=== PATIENT | female | born 1980 | race Hispanic/Latino ===

== ENCOUNTER 2017-01-08 07:18 | Emergency (ER) | payer OTHER ==
[~2017-01-08] VITALS: Ht 157.5 cm; Wt 59.0 kg
[~2017-01-08 07:18] MED LIST: DOCUSATE SODIU100 M3 PO; ESCITALOPRAM OX10 MG; KEFLEX500 M1 PO; KLOR-CON20 ME1 PO; LEVSIN-SL0.125 MG SL; OXYCODONE-ACET1 EACH; PEPCID20 M1 PO; PERCOCET 5-3251 EACH PO; REGLAN10 M1 PO; VISTARIL50 M1 PO
[2017-01-08 07:21] VITALS: BP 125/82
--- NOTE | 2017-01-08 07:24 | ED HAND/WRIST INJURY COMPLAINT ---
History of Present Illness General Chief Complaint: Laceration Procedure Stated Complaint: LAV TO RT POINTING FINGER Source: patient Exam Limitations: no limitations Vital Signs & Intake/Output Vital Signs & Intake/Output Vital Signs Date Time Temp Pulse Resp B/P B/P Pulse O2 O2 Flow FiO2 Mean Ox Delivery Rate 01/08 0721 96.6 79 18 125/82 96 Room Air Allergies Coded Allergies: NO KNOWN ALLERGIES (03/03/16) Reconcile Medications Cephalexin (Keflex) 500 MG CAPSULE 1 CAP PO TID INFECTION Cephalexin (Keflex) 500 MG CAPSULE 1 CAP PO TID INFECTION Docusate Sodium 100 MG CAPSULE 1 CAP PO BID STOOL SOFTENER (Reported) Escitalopram Oxalate (Unknown Strength) TABLET (Unknown Dose) UNKNOWN ( Reported) Famotidine (Pepcid) 20 MG TABLET 1 TAB PO BID gastritis Hydroxyzine Pamoate (Vistaril) 50 MG CAPSULE 1 CAP PO BID PRN anxiety Hyoscyamine Sulfate (Levsin-Sl) 0.125 MG TAB.SUBL 1-2 TAB SL Q4P PRN abd pain Metoclopramide HCl (Reglan) 10 MG TABLET 1 TAB PO 4 TIMES/DAY PRN nausea/ vomiting 30 minutes before meals and bedtime Oxycodone HCl/Acetaminophen (Oxycodone-Acetaminophen 5-325) (Unknown Strength) TABLET (Unknown Dose) UNKNOWN (Reported) Oxycodone HCl/Acetaminophen (Percocet 5-325 MG Tablet) 1 EACH TABLET 1 TAB PO Q6P PRN severe pain Potassium Chloride (Klor-Con) 20 MEQ PACKET 1 PACKET PO BID hypokalemia Triage Note: 36 Y/O FEMALE C/O V-SHAPED LACERATION TO R INDEX FINGER; CUT WITH POCKET KNIFE. PT UNSURE OF LAST TETANUS. 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 yes Occurred: this morning Timing: single episode today Injury Environment: home Severity: mild, moderate Pain/Injury Location: Right: 1st finger. Method of Injury: laceration No Modifying Factors: none : No Patient currently breastfeeds: No HPI: 36 year old female who presents to the ER 20 minutes after cutting her right index finger with a pocket knife. She was trying to cut a hole in a belt when it occured. No numbness or tingling. There was a decent amount of blood at the site. Currently not actively bleeding, and her tetanus is not up-to-date. Past History Travel History Traveled to [place] past 21 day No Medical History Any Pertinent Medical History? 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 No Review of Systems Review of Systems Constitutional: Denies: chills, fever. EENTM: Reports: no symptoms. Respiratory: Denies: short of breath. Cardiovascular: Denies: chest pain. GI: Denies: abdominal pain. Genitourinary: Reports: no symptoms. Musculoskeletal: Reports: no symptoms. Skin: Reports: no symptoms. Neurological/Psychological: Reports: no symptoms. Hematologic/Endocrine: Reports: bleeding. Immunologic/Allergic: Reports: no symptoms. All Other Systems: Reviewed and Negative Physical Exam Physical Exam General Appearance: well developed/nourished, alert, awake, anxious, mild distress Head: atraumatic Eyes: Bilateral: PERRL, EOMI. Ears, Nose, Throat: normal pharynx, normal ENT inspection, hearing grossly normal Neck: normal inspection, supple Cardiovascular/Respiratory: normal breath sounds, regular rate/rhythm Back: normal inspection Elbow Left: normal range of motion, normal inspection Elbow Right: normal range of motion, normal inspection Forearm Left: normal range of motion, normal inspection Forearm Right: normal range of motion, normal inspection Wrist Left: normal range of motion, normal inspection Wrist Right: normal range of motion, normal inspection Hand Left: normal inspection, normal range of motion Hand Right: 1st finger (V SHAPED LACERATION) Neurologic/Tendon: normal sensation, normal motor functions, normal tendon functions Skin: intact, normal color, warm/dry Lymphatic: no anterior cervical bhumika Progress Differential Diagnosis: LACERATION Plan of Care: Tetanus, laceration repair/irrigation Antibiotics as wound likely dirty Departure Departure Time of Disposition: 08 Disposition: HOME OR SELF CARE Condition: Stable Clinical Impression Primary Impression: Finger laceration Referrals: JOHAN BRADLEY APRN (PCP/Family) Additional Instructions: Return in 7 days for suture removal. Please use the finger splint as directed. Take the Keflex as prescribed. Return any sooner as needed. Departure Forms: Customer Survey General Discharge Information Prescriptions: Current Visit Scripts Cephalexin (Keflex) 1 CAP PO TID #30 CAP Procedures Splinting Location: right index finger splint Laceration/Wound Repair Laceration/Wound Repair: Wound Location: RIGHT INDEX FINGER Wound's Depth, Shape: flap Wound Length (cm): 5 Wound Explored: no foreign body removed, irrigated extensively Irrigated w/ Saline (ccs): 100 Betadine Prep? Yes Anesthesia: 1% lidocaine Volume Anesthetic (ccs): 6 Wound Repaired With: sutures Suture Size/Type: 5:0 Number of Sutures: 4 Splint Applied? Yes By Who? by nurse Date of Last Tetanus: 01/08/17 Tetanus Status: not up to date
[2017-01-08] MEDS ORDERED: KEFLEX500 M1 PO (08:03)
== END 2017-01-08 08:16 ==
LOC: ERH 07:18
DX: S61.210A Laceration without foreign body of right index finger without damage to nail, initial encounter (principal); W26.0XXA Contact with knife, initial encounter; Y92.9 Unspecified place or not applicable; Y93.9 Activity, unspecified
CPT/HCPCS: 90471; 90714

== ENCOUNTER 2018-03-01 13:40 | Emergency (ER) | payer OTHER ==
[~2018-03-01] VITALS: Ht 157.5 cm; Wt 44.5 kg
[~2018-03-01 13:40] MED LIST changes: +DICLEGIS DR 101 EACH PO; +NAPROSYN500 M1 PO; +OMEPRAZOLE10 M1 PO; +POTASSIUM CHLO10 ME3 PO; +PRENATAL PLUS1 EAC2 PO; +ZOFRAN ODT4 M1 SL
[2018-03-01 14:09] LABS: ABSOLUTE BASOPHIL COUNT 0.1 /CUMM (0.0-0.2); ABSOLUTE EOSINOPHIL COUNT 0 /CUMM (0.0-0.7); BASOPHIL % 0.6 % (0.0-2.0); EOSINOPHIL % 0.2 % (0-5); GRANULOCYTE % 80.5 % (42.2-75.2); HEMATOCRIT 45.1 % (37-47); MEAN CORPUSCULAR HGB 24.4 PG (27.0-31.0); MEAN CORPUSCULAR HGB CONC 32.5 G/DL (33.0-37.0); MEAN CORPUSCULAR VOLUME 75.1 FL (81.0-99.0); MEAN PLATELET VOLUME 9.8 FL (7.4-10.4); PLATELET COUNT 267 /CUMM (130-400); RBC DISTRIBUTION WIDTH 13.4 % (11.5-14.5); RED BLOOD CELL CT 6.01 /CUMM (4.20-5.40); WHITE BLOOD CELL COUNT 16.1 /CUMM (4.8-10.8)
--- NOTE | 2018-03-01 16:56 | ED GI/GU/ABDOMINAL COMPLAINT ---
History of Present Illness General Chief Complaint: General Adult Stated Complaint: N/V, ABDOMINAL PAIN,DEPRESSION Source: patient Exam Limitations: no limitations Vital Signs & Intake/Output Vital Signs & Intake/Output Vital Signs Date Time Temp Pulse Resp B/P B/P Pulse O2 O2 Flow FiO2 Mean Ox Delivery Rate 03/02 1343 98.0 78 20 135/90 98 Room Air 03/02 1105 98.0 85 20 115/78 99 Room Air 03/02 0838 98.1 96 20 103/86 98 Room Air 03/02 0548 96.0 72 20 118/75 99 Room Air 03/01 2200 98.8 83 16 100/83 99 Room Air 03/01 2114 100.1 97 16 124/83 98 Room Air 03/01 1725 Room Air ED Intake and Output 03/02 0000 03/01 1200 Intake Total 1000 Output Total Balance 1000 Intake, IV 1000 Patient 98 lb Weight Weight Estimated Measurement Method Allergies Coded Allergies: NO KNOWN ALLERGIES (03/03/16) Triage Note: PT TO ED "I DON'T FEEL GOOD". C/O WEAKNESS, N/V X 2 WEEKS PER MOTHER. PT HAD MISCARRIAGE 02/24. POOR PO INTAKE. C/O "MY WHOLE BODY HURTS". MOTHER STATES PT IS DEPRESSED. PT TEARFUL IN TRIAGE. DENIES SI/HI. MOTHER STATES PT IS UNABLE TO CARE FOR HER OTHER CHILDREN. Triage Nurses Notes Reviewed? yes ? n Is pt currently ? No Onset: Gradual Duration: day(s): Timing: recent history Quality/Severity: moderate Location: suprapubic HPI: 37yo female presents to ED complaining of abdominal pain, back pain, and "pain everywhere" since misscarriage last week. Patient had spontaneous misscarriage on 02/24 and required d&c on 02/[address] Silva. Patient reports light vaginal bleeding at this time and moderate bleeding since the procedure. She also reports nausea and vomiting for the past two weeks. She states she has not energy or motivation and endorses depression since her misscarriage. Her mother is present who states the patient cannot take care of herself or her children. The patient denies SI/HI, fevers, chills, dysuria. (Kiya HAWK,Luz Sterling) Reconcile Medications Escitalopram Oxalate (Unknown Strength) TABLET (Unknown Dose) UNKNOWN ( Reported) Famotidine (Pepcid) 20 MG TABLET 1 TAB PO BID gastritis Potassium Chloride (Klor-Con) 20 MEQ PACKET 1 PACKET PO BID hypokalemia Potassium Chloride 10 MEQ CAPSULE.ER 1 CAP PO DAILY LOW POTASSIUM (Primo MESSER,Rigoberto) Past History Travel History Traveled to [place] past 21 day No Medical History Any Pertinent Medical History? 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 No (Luz Redd) Review of Systems Review of Systems Constitutional: Reports: see HPI. EENTM: Reports: no symptoms. Respiratory: Reports: no symptoms. Cardiovascular: Reports: no symptoms. GI: Reports: see HPI. Genitourinary: Reports: see HPI. Musculoskeletal: Reports: no symptoms. Skin: Reports: no symptoms. Neurological/Psychological: Reports: see HPI. Hematologic/Endocrine: Reports: no symptoms. Immunologic/Allergic: Reports: no symptoms. All Other Systems: Reviewed and Negative (Luz Redd) Physical Exam Physical Exam General Appearance: well developed/nourished, alert, awake, mild distress Head: atraumatic, normal appearance Eyes: Bilateral: normal appearance. Ears, Nose, Throat, Mouth: hearing grossly normal Neck: normal inspection, supple, full range of motion Respiratory: normal breath sounds, no respiratory distress, lungs clear Cardiovascular: regular rate/rhythm Gastrointestinal: normal bowel sounds, soft, no organomegaly, mild suprapubic tenderness Back: normal inspection, normal range of motion, no CVA tenderness Extremities: normal range of motion Neurologic/Psych: awake, alert, oriented x 3 Skin: intact, normal color, warm/dry Core Measures ACS in differential dx? No Sepsis Present: No Sepsis Focused Exam Completed? No (Luz Redd) Progress Differential Diagnosis: cholecystitis, endometritis, gastritis, PID/cervicitis, threatened AB, UTI/pyelo, missed Plan of Care: Orders Procedure Date/time Status Regular Diet 03/02 B Active URINALYSIS 03/01 2350 Complete Add-on Test (ER Only) 03/01 2320 Active Add-on Test (ER Only) 03/01 1623 Active Continuous Observation Monitor 03/01 1623 Active ED CRISIS PSYCH CONSULT 03/01 1623 Active Add-on Test (ER Only) 03/01 1605 Active Current Medications Sig/Ritchie Start time Last Medication Dose Stop Time Status Admin Ketorolac 30 MG ONCE ONE 03/01 1700 CAN Tromethamine 03/01 1701 (Toradol) Potassium Chloride 40 MEQ ONCE ONE 03/01 1645 CAN (K-Dur) 03/01 1646 Sodium Chloride 1,000 ML BOLUS ONE 03/01 1645 CAN (Normal Saline 0.9%) 03/01 1744 Laboratory Tests 03/02/18 0540: Urinalysis LIGHT H, Urine Color YEL, Urine Clarity HAZY H, Urine pH 6.5, Ur Specific [place] 1.020, Urine Protein 30 H, Urine Ketones 15 H, Urine Nitrite NEG, Urine Bilirubin NEG, Urine Urobilinogen 2.0 H, Ur Leukocyte Esterase NEG, Ur Microscopic SEDIMENT EXAMINED, Urine RBC 3-5, Urine WBC 1-3 H, Ur Epithelial Cells MOD H, Urine Bacteria FEW H, Urine Mucus FEW, Micro UA Comment TRICHOMONAS SEEN H, Urine Hemoglobin MOD H, Urine Glucose NEG The patient was evaluated in triage by KENN Reyes, the patient and her mother endorsed suicidal ideations KENN Figueroa at that time however she denied suicidal ideation to me. Given her SI statements to KENN Figueroa crisis evaluation will be obtained. Patient reported RUQ tenderness to KENN figueroa however during my abdomenal exam she reported lower/suprapubic tenderness. Will obtained abdominal US to assess for biliary disease. Labs show leukocytosis however WBCs trending down compared to old labs on 02/21 at which time WBCs were 21.2. Patient seen sleeping in stretcher in hallway. I woke her up to tell her about her ultrasound results. Patient reports minimal relief following toradol. She is reporting bilateral upper back pain. Repeat abdominal exam shows generalized tenderness without gaurding. Patient medicated with IV tylenol. Based on the patient's labs and vital signs there is a low suspicion for acute infectious abdominal pathology, the patient is in no distress, afebrile. The patient was signed out to Dr. Daniel pending crisis evaulation. Patient making statements that she does not wish to stay in the emergency department for crisis, she states she wants to go home and denies suicidal ideation. I informed the patient that she would crisis evaluation prior to being discharged. I informed her that if she attempts to leave she would require restraints and possible sedation. Diagnostic Imaging: Viewed by Me: Ultrasound. Discussed w/RAD: Ultrasound. Initial ED EKG: none Hand-Off Endorsed To: Rigoberto Daniel DO Endorsed Time: 1899 Pending: consult (Kiya HAWK,Luz Sterling) Comments: Addendum by Dr. Daniel at 1442 hrs. on 03/02/2018: I assumed care from Dr. Crawley this morning at 7 AM awaiting crisis reevaluation. Crisis performed their evaluation and deemed her safe for outpatient follow-up with a diagnosis of unspecified anxiety. She has a behavioral health appointment on March 14 at 9 :30 AM. I reassessment her medical screening examination otherwise negative, stable for discharge. (Rigoberto Daniel DO) Departure Departure Condition: Stable Referrals: Macy Hopkins APRN (PCP/Family) Departure Forms: Customer Survey General Discharge Information (Luz Redd) Departure Comments PT to be signed out to dr. daniel 03/02, 7am. PA/OILER BANDER Co-Sign Statement Statement: ED Attending supervision documentation- [] I saw and evaluated the patient. I have also reviewed all the pertinent lab results and diagnostic results. I agree with the findings and the plan of care as documented in the PA's/OILER BANDER's documentation. [X] I have reviewed the ED Record and agree with the PA's/OILER BANDER's documentation. [] Additions or exceptions (if any) to the PAs/OILER BANDER's note and plan are summarized below: [] (Denisa MUELLER,Marky Ulloa) Departure Time of Disposition: 2 Disposition: HOME OR SELF CARE Clinical Impression Primary Impression: Anxiety disorder, unspecified Qualifiers: Anxiety disorder type: unspecified anxiety disorder Qualified Code: F41.9 - Anxiety disorder, unspecified Additional Instructions: Please follow-up with the resources as provided by the crisis team on March 14 at 9:30 AM. (Rigoberto Daniel DO) Hypokalemia Nausea & vomiting Qualifiers: Vomiting type: unspecified Vomiting Intractability: non-intractable Qualified Code: R11.2 - Nausea with vomiting, unspecified Suicidal ideation Referrals: Macy Hopkins APRN (PCP/Family) Departure Forms: Customer Survey General Discharge Information (Luz Redd) Departure Comments PT to be signed out to dr. daniel 03/02, 7am. PA/OILER BANDER Co-Sign Statement Statement: ED Attending supervision documentation- [] I saw and evaluated the patient. I have also reviewed all the pertinent lab results and diagnostic results. I agree with the findings and the plan of care as documented in the PA's/OILER BANDER's documentation. [X] I have reviewed the ED Record and agree with the PA's/OILER BANDER's documentation. [] Additions or exceptions (if any) to the PAs/OILER BANDER's note and plan are summarized below: [] (Denisa MUELLER,Marky Ulloa)
--- NOTE | 2018-03-01 18:13 | ULTRASOUND REPORT ---
EXAMINATION: US ABDOMEN LIMITED CLINICAL INFORMATION: Right upper quadrant pain.. COMPARISON: CT scan abdomen pelvis 05/10/2017, 03/03/2016. Ultrasound of abdomen 01/30/2013, 06/15/2011 TECHNIQUE: Real-time imaging of the right upper quadrant abdominal viscera.: Doppler exam used. FINDINGS: PANCREAS: Normal. LIVER: Normal. The liver demonstrates normal size, contour and echogenicity. No focal lesion or intrahepatic biliary duct dilatation. GALLBLADDER: There is echogenic bile within the lumen of the gallbladder. No gallstone. There is no gallbladder wall thickening. There is no pericholecystic fluid. Negative ultrasound Montes's sign. COMMON BILE DUCT: Normal in caliber measuring 0.3 cm in diameter. RIGHT KIDNEY: Possible nonobstructive 3 mm stone in the lower pole of the right kidney. There is a echogenic focus with ringdown artifact. No stone however was seen on the CAT scan studies of 05/10/2017 or 03/03/2016. There is no hydronephrosis. The kidney is normal in size and contour with normal cortical thickness and normal echogenicity of the cortex. The kidney measures 10.7 cm in maximum dimension. FREE FLUID: None. IMPRESSION: 1. Echogenic bile within the gallbladder. No acute change of gallbladder wall. No bile duct dilatation. 2. Possible nonobstructive 3 mm stone lower pole of the right kidney. No stone however was seen on the CAT scan studies of 05/10/2017 or 03/03/2016
--- NOTE | 2018-03-02 12:24 | ED PSYCH CRISIS CONSULTATION ---
Crisis Consult Basic Assessment Date of Consult: 03/02/18 Responsible Person/Accompanied By: mother Jones Insurance Authorization: Insurance #1: Insurance name: PATRICIA Ferris C&A Phone number: Policy number: [id number] Group number: Authorization number: ED Provider: Patient's ED Provider: Rigoberto Tillman DO Primary Care Physician: Patient's PCP: Macy Hopkins APRN PCP's Current Psychiatrist: none Chief Complaint: Stomache and knee pain. Made S I comment Patient's Quote: "I don't want to kill myself, but I Present Illness: Patient is a 37 year old unmarried female who came to the E D due to ongoing physical discomfort. Patient reports that she has "never felt very good", stating that she has struggled throughout her life. Patient states that she has pain from her knee, and showed the difficulty to me. She states that she needed surgery, but that it was not very successful, and indicated that it is painful to stand straight. Patient has to slouch slightly in order for it to be less painful. Patient also describes a constant problem with eating. She states that she has trouble getting food down. Patient reports that there has been a 15-20 pound weight loss in the past few weeks, and states that fruit is the best food that can get down. Patient is fully alert and oriented. She is tearful and appears to have lost weight. Patient was very slow to provide any eye contact, but gradually began to speak in an almost conversational tone. Patient states that she does not take anything for pain, and doesn't want to, but states that cannabis helps her to relax. Patient had had problems with substance abuse in the past; however she does not use anything except the cannabis, and does not see herself as wanting to stop that, saying that she was doubtful about any medicine being helpful for mood. Patient had one hospitalization at [place] in 2011, but states that was short , and was not helpful. It was due to some suicidal ideation, but patient insists that she was not suicidal then or now. Patient was in [facility] for dual diagnosis, and states that she did hate it, because she felt very uncomfortable talking in groups. Patient vehemently denies having any thoughts or plan to hurt herself, despite having many physical issues. Patient is not able to describe things which she enjoys. Patient reports that she has resisted going for treatment, because she does not believe in medications. Patient has been doubtful that her mood can be "fixed". Patient is completely against any admission for psychiatry. Patient's mom reports that patient has been "pretty much as she is now", for sometime. Mother does not know how she can help her, as patient continues to complain about medical problems, but there is no clear medical issues. Patient's Address: [address] [place] [address] Other Phone Number: Who Do You Live With? Family Family/Informants Interviewed: motherCris [phone] Allergies - Coded Allergies: NO KNOWN ALLERGIES (03/03/16) Current Medications - Scheduled Medications Famotidine (Pepcid) 20 MG TABLET 1 TAB PO BID gastritis #60 TAB Prescribed by Daniel Joyner MD on 03/03/16 Potassium Chloride (Klor-Con) 20 MEQ PACKET 1 PACKET PO BID hypokalemia #20 PACKET Prescribed by Daniel Joyner MD on 03/03/16 Potassium Chloride 10 MEQ CAPSULE.ER 1 CAP PO DAILY LOW POTASSIUM #4 CAP Prescribed by Lisa Rios on 05/10/17 Miscellaneous Medications Escitalopram Oxalate (Unknown Strength) TABLET (Unknown Dose) UNKNOWN #30 ( Reported) Entered as Reported by Bria Combs on 02/15/16 1525 Laboratory Results: Laboratory Tests 03/02/18 0540: Urinalysis LIGHT H, Urine Color YEL, Urine Clarity HAZY H, Urine pH 6.5, Ur Specific Haskell 1.020, Urine Protein 30 H, Urine Ketones 15 H, Urine Nitrite NEG, Urine Bilirubin NEG, Urine Urobilinogen 2.0 H, Ur Leukocyte Esterase NEG, Ur Microscopic SEDIMENT EXAMINED, Urine RBC 3-5, Urine WBC 1-3 H, Ur Epithelial Cells MOD H, Urine Bacteria FEW H, Urine Mucus FEW, Micro UA Comment TRICHOMONAS SEEN H, Urine Hemoglobin MOD H, Urine Glucose NEG 03/01/18 1402: Urine Opiates Screen < 100, Methadone Screen < 40, Barbiturate Screen < 60, Ur Phencyclidine Scrn < 6.00, Amphetamines Screen 206, U Benzodiazepines Scrn < 85, Urine Cocaine Screen < 50, Urine Cannabis Screen 72.80 H 03/01/18 1356: Anion Gap 17 H, Estimated GFR > 60, BUN/Creatinine Ratio 20.0, Glucose 154 H, Calcium 10.0, Total Bilirubin 0.5, AST 23, ALT 27, Alkaline Phosphatase 69, Total Protein 8.2, Albumin 4.8, Globulin 3.4, Albumin/Globulin Ratio 1.4, Amylase 37, Lipase 179, CBC w Diff MAN DIFF ORDERED, RBC 6.01 H, MCV 75.1 L, MCH 24.4 L, MCHC 32.5 L, RDW 13.4, MPV 9.8, Gran % 80.5 H, Lymphocytes % 12.4 L, Monocytes % 6.3, Eosinophils % 0.2, Basophils % 0.6, Absolute Granulocytes 13.0 H, Segmented Neutrophils 74, Band Neutrophils 2, Absolute Lymphocytes 2.0, Lymphocytes 18 L, Monocytes 5, Absolute Monocytes 1.0 H, Eosinophils 1, Absolute Eosinophils 0, Absolute Basophils 0.1, Platelet Estimate ADEQUATE, Normocytic RBCs VERIFIED, Normochromic RBCs VERIFIED, Serum Alcohol < 10.0 03/01/18 1344: Urine Color Cancelled, Urine Clarity Cancelled, Urine pH Cancelled, Ur Specific Haskell Cancelled, Urine Protein Cancelled, Urine Ketones Cancelled, Urine Nitrite Cancelled, Urine Bilirubin Cancelled, Urine Urobilinogen Cancelled, Ur Leukocyte Esterase Cancelled, Ur Microscopic Cancelled, Urine Hemoglobin Cancelled, Urine Glucose Cancelled Past History Past Medical History Neurological: NONE EENT: NONE Cardiovascular: NONE Respiratory: NONE Gastrointestinal: CHRONIC ABDOMINAL PAIN hEMORRHOIDS Hepatic: NONE Renal: NONE Musculoskeletal: KNEE SURGERY Psychiatric: anxiety, depression, insomnia, substance abuse Endocrine: NONE Blood Disorders: NONE Cancer(s): NONE 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 Pt admitted to using substances Physical Limitations (Interventions): Chronic physical discomfort and knee pain Psychiatric Treatment History Psych Treatment Psychiatric Treatment Yes Inpatient Treatment Yes Outpatient Treatment Yes Location of Treatment [place] and [place] Reason for Treatment 2011 at [place] and 2017 at [place] Response to Treatment fair Diagnosis by History: Anxiety & Depression Substance Use/Abuse History Drug Use/Abuse Substances Used/Abused Yes Substance Used/Abused Marijuana First Use 12 Last Used yesterday How much used/taken 1-2 blunts How often daily For how long 20+ years Route of use smoke Substance Abuse Treatment Substance Abuse Treatment Past Substance Abuse [place] No Inpatient Treatment No Outpatient Treatment Yes Location of Treatment [place] Reason for Treatment opiod dependence Dates of Treatment 2017 Response to Treatment good Comments: able to stay off street drugs Current Mental Status Mental Status Orientation: Current situation, Person, Place, Situation Affect: Anxious, Depressed Speech: Pressured, Soft Neuro-vegetative: Appetite Decreased, Energy Decreased, WNL Appearance Appearance- Dress/Hygiene: disheveled Behaviors Thought Process: WNL, guarded Thought Content: WNL Memory: WNL Insight: Fair SI/HI Risk Assessment Past Suicidal Ideation/Attempts Yes (statement, 2011) Current Suicidal Ideation/Att No Past Homicidal Ideation/Att: No Current Homicidal Ideation/Attempts No Degree of Intent: Thoughts/No Intent Risk Factors: chronic/serious med cond., high anxiety/distress, SA/MH hospitalized, substance abuse, limited support Lethality Ratin (mild) PTSD Checklist PTSD Done? 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 Departure Disposition Psych Medical Clearance Date: 03/02/18 Medically Cleared at: 1110 Time Started: 1115 Time Ended: 1210 Psychiatrist Consulted: [facility] Disposition Established: 03/02/18 Time Disposition Established: 1409 Plan for Disposition - Modality: Outpatient Facility: [facility] Follow-up Appt Date: 03/14/18 Follow-Up Appt Time: 929 Contact: Jessica Baer Rationale for Disposition: patient denies any S.I. or H.I. and no psychosis. Agreeing to O.P. follow-up Additional Instructions: Leo Baer. Referrals Macy Hopkins APRN (PCP/Family) Time Ended: 1210 Psychiatrist Consulted: [facility] Disposition Established: 03/02/18 Referrals Macy Hopkins APRN (PCP/Family)
[2018-03-02 13:43] VITALS: BP 135/90
== END 2018-03-02 14:49 ==
LOC: ERH 13:40
PROVIDERS: Physician Assistant
DX: F41.9 Anxiety disorder, unspecified (principal)
CPT/HCPCS: 80307; 81001; 96374; 96375; G0463; G0480; J0131; J1885; J2405; J3101